=== PATIENT | female | born 1985 | race Caucasian/White ===

== ENCOUNTER 2022-03-24 07:33 | Emergency (ER) | payer OTHER ==
[~2022-03-24] VITALS: Ht 167.6 cm; Wt 70.5 kg
[~2022-03-24 07:33] MED LIST: NO MEDS
[2022-03-24 07:38] VITALS: BP 128/69
[2022-03-24] MEDS ORDERED: BENZ-70 PO (08:55)
== END 2022-03-24 09:12 | disposition home or self-care (01) ==
LOC: EMS 07:38
DX: J40 Bronchitis, not specified as acute or chronic (principal); R05.9 Cough, unspecified
CPT/HCPCS: 71045; 99283